=== PATIENT | male | born 1960 | race Caucasian/White ===

== ENCOUNTER 2017-10-15 01:41 | Emergency (ER) | payer OTHER ==
[~2017-10-15] VITALS: Ht 165.1 cm; Wt 64.4 kg
--- NOTE | ~2017-10-15 | EKG ---
[place], [place] ELECTROCARDIOGRAM REPORT NAME: RACHANA RIVERA UNIT #: [id number] ROOM: DOCTOR: EPIPHANY DRAFT REPORT BIRTHDATE: [birth year] [facility] Test Date: 2017-10-15 Test Time: 01:45:57 Pat Name: RACHANA RIVERA Department: ER Room: 2 Gender: M [employer]: : 1960 Requested By: SHANDA KAY Order Number: [id number] Reading MD: Sanjiv Xiong MD Measurements Intervals [place] Rate: 91 P: -53 CT: 147 QRS: -16 QRSD: 96 T: -74 QT: 354 QTc: 436 Interpretive Statements Ectopic atrial rhythm Probable left atrial enlargement Borderline left axis deviation Anterior infarct, old Nonspecific repol abnormality, inferior leads Electronically Signed On 10-15-2017 8:55:29 PDT by Sanjiv Xiong MD CM:EKGRPT:ELECTROCARDIOGRAM REPORT [id number] SHANDA GUAMAN DRAFT REPORT SHANDA KAY DO
[~2017-10-15 01:41] MED LIST: ANTIVERT25 MG PO; ATIVAN1 MG PO; DILTIAZEM60 MG PO; LOPRESSOR25 MG PO; TOPROL XL25 MG PO; ZANTAC150 MG PO
[2017-10-15] MEDS ORDERED: BENADRYL ALLERG25 M5 PO (01:53)
[2017-10-15] MEDS ORDERED: IBU800 M1 PO (01:53)
[2017-10-15] MEDS ORDERED: ZANTAC 300300 MG PO (01:53)
[2017-10-15] MEDS ORDERED: LOPRESSOR25 MG PO (01:55)
[2017-10-15 01:59] LABS: BASO # 0.1 10*3/uL (0.0-0.1); BASO % 0.7 % (0.0-1.0); EOS # 0.1 10*3/uL (0.0-0.4); EOS % 0.8 % (1.0-4.0); HEMOGLOBIN 14.8 g/dl (14.0-18.0); LYMPH # 4.5 10*3/uL (1.3-4.4); LYMPH % 27.3 % (27.0-41.0); MEAN CELL VOLUME 94.7 fl (80.0-94.0); MEAN CORPUSCULAR HGB 31.2 pg (27.0-31.0); MEAN CORPUSCULAR HGB CONC 32.9 g/dl (33.0-37.0); MEAN PLATELET VOLUME 9.5 fl (9.6-12.3); MONO # 1.2 10*3/uL (0.1-1.0); MONO % 7.2 % (3.0-9.0); NEUT # 10.5 10*3/uL (2.3-7.9); NEUT % 63.3 % (47.0-73.0); PLATELET COUNT AUTOMATED 293 10*3/uL (130-400); RED BLOOD COUNT 4.75 10*6/uL (4.50-5.90); RED CELL DISTRI WIDTH 13.2 % (0-14.5); WHITE BLOOD COUNT 16.6 10*3/uL (4.8-10.8)
[2017-10-15 02:10] LABS: ACT PARTIAL THROMBO TIME 21.7 SECONDS (20.8-31.5)
[2017-10-15 02:32] LABS: ALBUMIN 3.5 gm/dl (3.1-4.5); ALKALINE PHOSPHATASE 67 U/L (45-117); BUN 19 mg/dl (7-24); CHLORIDE 105 mmol/L (98-107); CREATININE 1.52 mg/dL (0.70-1.30); SGOT/AST 20 IU/L (3-35); SGPT/ALT 26 U/L (12-78); SODIUM 139 mmol/L (136-145); TOTAL PROTEIN 6.7 gm/dL (6.4-8.2)
[2017-10-15 02:33] LABS: TROPONIN I < 0.015 ng/ml (<0.045)
[2017-10-15 03:37] VITALS: BP 103/80
== END 2017-10-15 03:54 | disposition left against medical advice (07) ==
LOC: ED 01:41
PROVIDERS: Student in an Organized Health Care Education/Training Program
DX: R07.9 Chest pain, unspecified (principal); J45.909 Unspecified asthma, uncomplicated; F17.200 Nicotine dependence, unspecified, uncomplicated; Z88.4 Allergy status to anesthetic agent; Z88.6 Allergy status to analgesic agent; Z79.899 Other long term (current) drug therapy

== ENCOUNTER 2020-03-15 12:26 | Emergency (ER) | payer SELFPAY ==
[~2020-03-15] VITALS: Ht 165.1 cm; Wt 65.8 kg
[~2020-03-15 12:26] MED LIST changes: +BENADRYL ALLERG25 M5 PO; +IBU800 M1 PO; +ZANTAC 300300 MG PO
[2020-03-15 13:19] LABS: BASO # 0.1 10*3/uL (0.0-0.1); BASO % 0.5 % (0.0-1.0); EOS # 0.1 10*3/uL (0.0-0.4); EOS % 0.9 % (1.0-4.0); HEMATOCRIT 48.2 % (42.0-52.0); LYMPH # 2.2 10*3/uL (1.3-4.4); LYMPH % 14.8 % (27.0-41.0); MEAN CELL VOLUME 94.7 fl (80.0-94.0); MEAN CORPUSCULAR HGB 30.8 pg (27.0-31.0); MEAN CORPUSCULAR HGB CONC 32.6 g/dl (33.0-37.0); MEAN PLATELET VOLUME 9.5 fl (9.6-12.3); MONO % 6.9 % (3.0-9.0); NEUT # 11.3 10*3/uL (2.3-7.9); NEUT % 76.5 % (47.0-73.0); PLATELET COUNT AUTOMATED 313 10*3/uL (130-400); RED BLOOD COUNT 5.09 10*6/uL (4.50-5.90); RED CELL DISTRI WIDTH 13.1 % (0-14.5); WHITE BLOOD COUNT 14.8 10*3/uL (4.8-10.8)
[2020-03-15 13:29] LABS: ACT PARTIAL THROMBO TIME 24.8 SECONDS (20.0-32.1); INTERNATIONAL NORM RATIO 0.9 (2.0-3.5)
[2020-03-15 13:40] LABS: ALBUMIN 3.4 gm/dl (3.1-4.5); ALKALINE PHOSPHATASE 85 U/L (45-117); BUN 14 mg/dl (7-24); CHLORIDE 107 mmol/L (98-107); CREATININE 1.46 mg/dL (0.70-1.30); LIPASE 124 U/L (73-393); POTASSIUM 4.3 mmol/L (3.5-5.1); SGOT/AST 14 IU/L (3-35); SGPT/ALT 21 U/L (12-78); SODIUM 138 mmol/L (136-145); TOTAL PROTEIN 6.6 gm/dL (6.4-8.2)
[2020-03-15 13:42] LABS: TROPONIN I < 0.015 ng/ml (<0.045)
[2020-03-15] MEDS ORDERED: LOPRESSOR25 MG PO (14:07)
[2020-03-15 14:13] VITALS: BP 120/82
== END 2020-03-15 15:21 | disposition left against medical advice (07) ==
LOC: ED 12:26
PROVIDERS: Physician Assistant
DX: R42 Dizziness and giddiness (principal); R53.83 Other fatigue; Z76.0 Encounter for issue of repeat prescription; F17.200 Nicotine dependence, unspecified, uncomplicated; Z88.5 Allergy status to narcotic agent; Z88.4 Allergy status to anesthetic agent; Z88.8 Allergy status to other drugs, medicaments and biological substances; Z79.899 Other long term (current) drug therapy; Z98.890 Other specified postprocedural states

== ENCOUNTER 2020-07-31 11:19 | Emergency (ER) | payer SELFPAY ==
[~2020-07-31] VITALS: Ht 165.1 cm; Wt 65.8 kg
[2020-07-31 11:37] VITALS: BP 122/85
[2020-07-31 12:19] LABS: BASO # 0.1 10*3/uL (0.0-0.1); BASO % 0.8 % (0.0-1.0); EOS # 0.1 10*3/uL (0.0-0.4); EOS % 0.8 % (1.0-4.0); HEMATOCRIT 45.3 % (42.0-52.0); LYMPH # 2.4 10*3/uL (1.3-4.4); LYMPH % 22.4 % (27.0-41.0); MEAN CELL VOLUME 95.4 fl (80.0-94.0); MEAN CORPUSCULAR HGB 31.4 pg (27.0-31.0); MEAN CORPUSCULAR HGB CONC 32.9 g/dl (33.0-37.0); MEAN PLATELET VOLUME 9.7 fl (9.6-12.3); MONO # 0.9 10*3/uL (0.1-1.0); MONO % 8.5 % (3.0-9.0); NEUT # 7.1 10*3/uL (2.3-7.9); PLATELET COUNT AUTOMATED 309 10*3/uL (130-400); RED BLOOD COUNT 4.75 10*6/uL (4.50-5.90); RED CELL DISTRI WIDTH 14.1 % (0-14.5); WHITE BLOOD COUNT 10.5 10*3/uL (4.8-10.8)
[2020-07-31 12:31] LABS: INTERNATIONAL NORM RATIO 0.9 (2.0-3.5)
[2020-07-31 12:42] VITALS: BP 126/96
[2020-07-31 12:42] LABS: ALBUMIN 3.3 gm/dl (3.1-4.5); ALKALINE PHOSPHATASE 89 U/L (45-117); BUN 21 mg/dl (7-24); CHLORIDE 107 mmol/L (98-107); CREATININE 1.55 mg/dL (0.70-1.30); POTASSIUM 4.4 mmol/L (3.5-5.1); SGOT/AST 15 IU/L (3-35); SGPT/ALT 23 U/L (12-78); SODIUM 134 mmol/L (136-145); TOTAL PROTEIN 6.8 gm/dL (6.4-8.2)
[2020-07-31 12:45] LABS: TROPONIN I < 0.015 ng/ml (<0.045)
== END 2020-07-31 16:13 | disposition admitted as inpatient to this hospital (09) ==
LOC: ED 11:19 → EDHOLD 14:37 → ED 14:37
PROVIDERS: Emergency Medicine
DX: R07.9 Chest pain, unspecified (principal); Z88.8 Allergy status to other drugs, medicaments and biological substances

== ENCOUNTER 2021-07-09 21:57 | Emergency (ER) | payer SELFPAY ==
[~2021-07-09] VITALS: Ht 165.1 cm; Wt 63.5 kg
[2021-07-09 21:59] VITALS: BP 133/90
[2021-07-09 22:43] LABS: ACT PARTIAL THROMBO TIME 30.3 SECONDS (20.0-32.1)
[2021-07-09 22:45] LABS: BASO % 0.5 % (0.0-1.0); EOS % 0.3 % (1.0-4.0); HEMATOCRIT 40.7 % (42.0-52.0); LYMPH # 0.3 10*3/uL (1.3-4.4); MEAN CELL VOLUME 94.4 fl (80.0-94.0); MEAN CORPUSCULAR HGB 31.3 pg (27.0-31.0); MEAN CORPUSCULAR HGB CONC 33.2 g/dl (33.0-37.0); MEAN PLATELET VOLUME 9.7 fl (9.6-12.3); MONO # 0.9 10*3/uL (0.1-1.0); NEUT % 79.4 % (47.0-73.0); PLATELET COUNT AUTOMATED 254 10*3/uL (130-400); RED BLOOD COUNT 4.31 10*6/uL (4.50-5.90); RED CELL DISTRI WIDTH 13.3 % (0-14.5); WHITE BLOOD COUNT 6.3 10*3/uL (4.8-10.8)
[2021-07-09 22:48] LABS: ALKALINE PHOSPHATASE 72 U/L (45-117); BUN 15 mg/dl (7-24); CHLORIDE 103 mmol/L (98-107); CREATININE 1.39 mg/dL (0.70-1.30); POTASSIUM 4.1 mmol/L (3.5-5.1); SGOT/AST 19 IU/L (3-35); SGPT/ALT 32 U/L (12-78); SODIUM 134 mmol/L (136-145); TOTAL PROTEIN 6.3 gm/dL (6.4-8.2)
== END 2021-07-10 00:58 | disposition home or self-care (01) ==
LOC: ED 21:57
PROVIDERS: Emergency Medicine
DX: U07.1 COVID-19 (principal); J45.901 Unspecified asthma with (acute) exacerbation; Z88.7 Allergy status to serum and vaccine; Z88.8 Allergy status to other drugs, medicaments and biological substances; Z79.899 Other long term (current) drug therapy

== ENCOUNTER 2021-07-17 17:10 | Emergency (ER) | payer SELFPAY ==
[~2021-07-17] VITALS: Wt 65.8 kg
[2021-07-17 17:19] VITALS: BP 125/100
[2021-07-17] MEDS ORDERED: PANTOPRAZOLE SO40 MG PO (17:37)
== END 2021-07-17 18:50 | disposition left against medical advice (07) ==
LOC: ED 17:10
DX: Z53.21 Procedure and treatment not carried out due to patient leaving prior to being seen by health care provider (principal)